=== PATIENT | male | born 1950 | race Caucasian/White ===

== ENCOUNTER 2016-05-07 09:42 | Outpatient (CLI) | payer MEDICARE, OTHER | END 2016-05-07 09:43 | disposition home or self-care (01) | DX: G47.33 Obstructive sleep apnea (adult) (pediatric) (principal); G47.61 Periodic limb movement disorder | CPT/HCPCS: 99213; G0463 ==

== ENCOUNTER 2016-06-16 09:58 | Emergency (ER) | payer MEDICARE, OTHER ==
[2016-06-16] MEDS ORDERED: IPRATROPIUM/ALBUTEROL 3 ML NEB INH STA (11:45)
[2016-06-16] MEDS ORDERED: DEXAMETHASONE 10 MG/ML VIAL PO STA (11:45)
[2016-06-16] MEDS ORDERED: CHERRY SYRUP 10 ML UDC PO ONE (11:54)
[2016-06-16] MEDS ORDERED: DEXAMETHASONE 10 MG/ML VIAL ONE (11:54)
[2016-06-16] MEDS ORDERED: IPRATROPIUM/ALBUTEROL 3 ML NEB INH ONE (11:58)
== END 2016-06-16 12:40 | disposition home or self-care (01) ==
DX: J45.21 Mild intermittent asthma with (acute) exacerbation (principal); H66.003 Acute suppurative otitis media without spontaneous rupture of ear drum, bilateral; R03.0 Elevated blood-pressure reading, without diagnosis of hypertension
CPT/HCPCS: 71020; 94640; 99283; 99284; A9270; J7620

== ENCOUNTER 2016-06-24 10:33 | Outpatient (CLI) | payer MEDICARE, OTHER | END 2016-06-24 10:34 | disposition home or self-care (01) | DX: G47.33 Obstructive sleep apnea (adult) (pediatric) (principal) | CPT/HCPCS: 99213; G0463 ==

== ENCOUNTER 2016-09-30 09:53 | Outpatient (CLI) | payer MEDICARE, OTHER | END 2016-09-30 09:54 | disposition home or self-care (01) | LOC: SC 09:53 | PROVIDERS: ATTEND Internal Medicine Pulmonary Disease | DX: G47.33 Obstructive sleep apnea (adult) (pediatric) (principal) | CPT/HCPCS: 99213; G0463; 99212 ==

== ENCOUNTER 2017-12-07 00:58 | Outpatient (CLI) | payer MEDICARE, OTHER | END 2017-12-07 00:59 | disposition critical access hospital (66) | LOC: EMS 00:58 | PROVIDERS: ATTEND Surgery | DX: R53.1 Weakness (principal); R29.810 Facial weakness | CPT/HCPCS: A0425; A0429 ==

== ENCOUNTER 2017-12-07 01:07 | Observation (INO) | payer MEDICARE, OTHER ==
--- NOTE | 2017-12-07 01:16 | ED Physician Documentation ---
PD HPI FOCAL NEURO - Stated complaint Stated Complaint: LEFT SIDE SPASM, CONFUSION, IREGULAR HR - Chief complaint Chief Complaint: Neuro - History obtained from History obtained from: Patient, EMS - History of Present Illness Timing - onset: Enter time (00:25 AM) Severity of deficit: Moderate Weakness: Arm, Hand, Leg, Foot, Left Numbness: Arm, Hand, Leg, Foot, Left Associated symptoms: No: Headache, Nausea / vomiting, Seizure, Chest pain Contributing factors: negative: Anticoagulated, Vascular dz, Atrial fibrillation , Prosthetic heart valve Baseline status: positive: A&OX3, ambulatory, indep Similar symptoms before: Has not had sx before Recently seen: Not recently seen - Additional information Additional information: 67-year-old male went to bed at 10:30 PM last evening and was at his baseline and when he awoke this morning at 12:25 AM the patient felt confused, had left- sided clumsiness, weakness and sensory changes and was having difficulty with his speech. The patient was transported by EMS and arrives somewhat improved but reports ongoing numbness and an abnormal sensation in his left side. The patient reports increased ability to express himself with only mild slurring now. The patient denies headache, neck pain, vision changes. No history of prior. Review of Systems Constitutional: denies: Fever, Chills Eyes: denies: Discharge Ears: denies: Ear pain Nose: denies: Congestion Throat: denies: Oral lesions / sores Cardiac: denies: Chest pain / pressure Respiratory: denies: Dyspnea GI: denies: Abdominal Pain : denies: Dysuria Skin: denies: Rash Musculoskeletal: denies: Neck pain Neurologic: reports: Focal weakness, Numbness, Difficulty speaking. denies: Syncope, Altered mental status Psychiatric: denies: Depressed Immunocompromised: denies: Chemotherapy PD PAST MEDICAL HISTORY - Past Medical History Cardiovascular: None Respiratory: None Neuro: None : Benign prostate hypertrophy, Frequency HEENT: Chronic hearing loss Musculoskeletal: Osteoarthritis, Fibromyalgia, Chronic back pain - Past Surgical History Past Surgical History: Yes Ortho: ACL reconstruction, Spine surgery - Present Medications Home Medications: Ambulatory Orders Medication Instructions Recorded Confirmed Albuterol Sulf [Ventolin Hfa 1 - 2 puffs INH Q4HR PRN #1 inhaler 06/16/16 Inhaler] Benzonatate [Tessalon] 100 - 200 mg PO TID PRN #20 capsule 06/16/16 Ibuprofen 800 mg QPM 06/16/16 06/16/16 Zolpidem [Ambien] 10 mg QPM 06/16/16 06/16/16 - Allergies Allergies/Adverse Reactions: Allergies Allergy/AdvReac Type Severity Reaction Status Date / Time narcotics Allergy Respiratory Uncoded 12/07/17 01:14 - Social History Does the pt smoke?: No Smoking Status: Never smoker Does the pt drink ETOH?: Yes Does the pt have substance abuse?: No PD ED PE NORMAL - General General: Alert and oriented X 3 - HEENT HEENT: Atraumatic, PERRL, EOMI, Ears normal, Moist mucous membranes - Neck Neck: Supple, no meningeal sign - Cardiac Cardiac: RRR, Strong equal pulses - Respiratory Respiratory: No respiratory distress, Clear bilaterally - Abdomen Abdomen: Soft, Non tender - Derm Derm: Normal color - Extremities Extremities: No deformity - Neuro Neuro: Alert and oriented X 3, energy auditor 2-12 intact, Other (The patient's face is symmetric, tongue is midline, sensation in the face is normal. 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 No pronator drift in the upper extremities. No pronator drift in the lower extremities. The patient reports decreased sensation in the left upper and lower extremity. The patient's speech is very slightly slurred but he is able to comprehend and articulate himself.). No: No motor deficit, No sensory deficit, Normal speech - Psych Psych: Normal mood NIHSS - Level of Consciousness Level of consciousness: (0) Alert, Keenly responsive LOC Questions: (0) Answers both Q's correct LOC Commands: (0) Performs both correctly - Gaze Best Gaze: (0) Normal - Visual Visual: (0) No loss - Facial Palsy Facial Palsy: (0) Normal, symmetrical movement - Motor Arms (both separate) Motor Arm (right): (0) No drift Motor Arm (left): (0) No drift - Motor Legs (both separate) Motor Leg (right): (0) No drift Motor Leg (left): (0) No drift - Sensory Sensory: (1) Kizt-xd-modqzjuk loss - Best Language Best Language: (0) No aphasia - Dysarthria Dysarthria: (1) Cdul-rq-pimnwaqg dysarthria - Extinction and Inattention (formally neg Extinction and inattention: (0) No abnormality Results - Vitals Vitals: Vital Signs - 24 hr 12/07/17 12/07/17 01:09 01:42 Temperature 36.4 C L Heart Rate 66 59 L Respiratory 16 15 Rate Blood Pressure 145/84 H 120/65 O2 Saturation 97 98 Oxygen O2 Source Room air - EKG (time done) 01:45 Rate: Rate (enter#) Rhythm: NSR Intervals: Prolonged VA, 1st degree AVB, Wide QRS Ischemia: Normal ST segments Other comments: Other comments (Sinus rhythm with first-degree AV block and nonspecific intraventricular conduction delay) - Labs Labs: Laboratory Tests 12/07/17 12/07/17 12/07/17 01:15 01:50 01:50 WBC 7.4 RBC 4.59 L Hgb 14.4 Hct 41.2 L MCV 89.8 MCH 31.3 H MCHC 34.9 RDW 13.1 Plt Count 218 MPV 8.5 Neut # (Auto) 3.7 Lymph # (Auto) 2.4 [place] # (Auto) 0.8 Eos # (Auto) 0.4 Baso # (Auto) 0.1 Absolute Nucleated RBC 0.01 Nucleated RBC % 0.1 PT 11.2 INR 1.0 APTT 23.2 L Sodium 138 Potassium 3.5 Chloride 105 Carbon Dioxide 24 Anion Gap 9.0 BUN 17 Creatinine 0.9 Estimated GFR (MDRD) 84 L Glucose 103 H Calcium 9.0 Total Bilirubin 0.3 AST 95 H ALT 172 H Alkaline Phosphatase 74 Total Creatine Kinase 233 Troponin I Total Protein 7.0 Albumin 3.9 Globulin 3.1 Albumin/Globulin Ratio 1.3 Lipase 31 Urine Opiates Screen Ur Oxycodone Screen Urine Methadone Screen Ur Propoxyphene Screen Ur Barbiturates Screen Ur Tricyclics Screen Ur Phencyclidine Scrn Ur Amphetamine Screen U Methamphetamines Scrn U Benzodiazepines Scrn Urine Cocaine Screen U Cannabinoids Screen Ethyl Alcohol < 5.0 12/07/17 12/07/17 01:50 01:50 WBC RBC Hgb Hct MCV MCH MCHC RDW Plt Count MPV Neut # (Auto) Lymph # (Auto) [place] # (Auto) Eos # (Auto) Baso # (Auto) Absolute Nucleated RBC Nucleated RBC % PT INR APTT Sodium Potassium Chloride Carbon Dioxide Anion Gap BUN Creatinine Estimated GFR (MDRD) Glucose Calcium Total Bilirubin AST ALT Alkaline Phosphatase Total Creatine Kinase Troponin I < 0.04 Total Protein Albumin Globulin Albumin/Globulin Ratio Lipase Urine Opiates Screen NEGATIVE Ur Oxycodone Screen NEGATIVE Urine Methadone Screen NEGATIVE Ur Propoxyphene Screen NEGATIVE Ur Barbiturates Screen NEGATIVE Ur Tricyclics Screen NEGATIVE Ur Phencyclidine Scrn NEGATIVE Ur Amphetamine Screen NEGATIVE U Methamphetamines Scrn NEGATIVE U Benzodiazepines Scrn NEGATIVE Urine Cocaine Screen NEGATIVE U Cannabinoids Screen NEGATIVE Ethyl Alcohol - Rads (name of study) CXR Radiology: Final report received (IMPRESSION: Hypoventilatory single view chest with cardiomegaly but without definite acute process. ) CTA Head/neck Radiology: Final report received (CT Head: No acute intracranial abnormality CTA Head: No large vessel occlusion, stenosis or aneurysm) PD MEDICAL DECISION MAKING - ED course ED course: 01:10 AM After a quick assessment of an acute stroke treatment and a stroke team was activated. 01:50 AM The patient's speech is close to his baseline per the significant other. The patient's motor weakness is improved and currently he is only experiencing sensory symptoms. The patient is able to ambulate without any difficulty. Require admission to the hospital for ongoing workup of his TIA. Reevaluation the patient was mostly at his baseline. Currently there is no findings that would necessitate transfer. The patient is not a candidate for TPA. The case was discussed with the hospitalist Dr. Mccann who accepts the patient onto her service. The findings and plan were discussed with the patient who understands and agrees - Consults Consults: Consulted (name) (Dr. Leal ), Discussed case with (01:55 AM The case was discussed with the on-call stroke neurologist from [facility]. The patient's past medical history and current presentation were discussed. Since, the patient's symptoms have improved and he no longer has any significant motor weakness in his left upper arm or leg and his speech is mostly at baseline. She , currently does not recommend any treatment with TPA. If the patient's symptoms change she request a reconsultation but currently no treatment is recommended), Other - Sepsis Event Vital Signs: Vital Signs - 24 hr 12/07/17 12/07/17 01:09 01:42 Temperature 36.4 C L Heart Rate 66 59 L Respiratory 16 15 Rate Blood Pressure 145/84 H 120/65 O2 Saturation 97 98 Oxygen O2 Source Room air Departure - Departure Disposition: ED Place in Observation Clinical Impression: TIA (transient ischemic attack)
[2017-12-07] MEDS ORDERED: IOPAMIDOL-300 100 ML VIAL ONE (01:17)
[2017-12-07 01:27] LABS: BASOPHILS # (AUTO) 0.1 10^3/uL (0.0-0.1); BASOPHILS % (AUTO) 0.8 %; EOSINOPHILS # (AUTO) 0.4 10^3/uL (0.0-0.7); EOSINOPHILS % (AUTO) 5.7 %; HGB - HEMOGLOBIN 14.4 g/dL (14.0-18.0); LYMPHOCYTES # (AUTO) 2.4 10^3/uL (1.5-3.5); LYMPHOCYTES % (AUTO) 33.1 %; MEAN CORPUSCULAR HEMOGLOBIN 31.3 pg (27.0-31.0); MEAN CORPUSCULAR HGB CONC 34.9 g/dL (32.0-36.0); MEAN CORPUSCULAR VOLUME 89.8 fL (80.0-94.0); MEAN PLATELET VOLUME 8.5 fL (7.4-11.4); MONOCYTES # (AUTO) 0.8 10^3/uL (0.0-1.0); MONOCYTES % (AUTO) 10.2 %; NEUTROPHILS # (AUTO) 3.7 10^3/uL (1.5-6.6); NEUTROPHILS % (AUTO) 50.2 %; PLT - PLATELET COUNT 218 10^3/uL (130-450); RED BLOOD COUNT 4.59 10^6/uL (4.70-6.10); RED CELL DISTRIBUTION WIDTH 13.1 % (12.0-15.0); WHITE BLOOD COUNT 7.4 x10^3/uL (4.8-10.8)
[2017-12-07] MEDS ORDERED: IOPAMIDOL-300 100 ML VIAL IVP ONE ×2 (01:38→03:11)
--- NOTE | 2017-12-07 01:55 | XRAY Report ---
Reason: chest pain Procedure Date: 12/07/2017 Accession Number: [id number] / [id number] Procedure: XR - Chest 1 View X-Ray CPT Code: 94244 FULL RESULT: EXAM: CHEST RADIOGRAPHY EXAM DATE: 12/07/2017 01:44 AM. CLINICAL HISTORY: Code stroke chest x-ray COMPARISON: XR CHEST PA AND LAT 07/18/2007 HEAD ANGIO 12/07/2017 1:24 AM. TECHNIQUE: 1 view. FINDINGS: Lungs/Pleura: Low volumes. No definite pneumonia or edema. No gross pneumothorax or large effusion. Mediastinum: Mild cardiomegaly. No mediastinal shift. Other: None. IMPRESSION: Hypoventilatory single view chest with cardiomegaly but without definite acute process. RADIA
[2017-12-07 01:57] LABS: MUDS CUTOFF CONCENTRATIONS CUTOFF CONC BELOW:
[2017-12-07] MEDS ORDERED: ASPIRIN CHEW 81 MG TABLET PO STA (02:00)
[2017-12-07 02:04] LABS: PT - PROTHROMBIN TIME 11.2 secs (9.9-12.6)
--- NOTE | 2017-12-07 02:07 | CT Report ---
Reason: L sided weakness Procedure Date: 12/07/2017 Accession Number: [id number] / [id number] Procedure: CT - Head Angio CPT Code: FULL RESULT: EXAM: CT ANGIOGRAM HEAD. CT SCAN OF THE HEAD WITHOUT AND WITH CONTRAST. EXAM DATE: 12/07/2017 01:41 AM CLINICAL HISTORY: Left sided weakness COMPARISON: None. TECHNIQUE: - CT Scan Head: Using a multidetector scanner, axial images were acquired from the foramen magnum to the skull vertex prior to and following contrast administration. - CT Angiogram: Using a multidetector scanner, high-resolution axial images were acquired from the skull base through vertex following rapid infusion of intravenous contrast. Reformats: Multiplanar MIP reformats were reconstructed. Nascet criteria used for stenosis measurement. IV Contrast: ISOVUE 300 80mL. In accordance with CT protocol optimization, one or more of the following dose reduction techniques were utilized for this exam: automated exposure control, adjustment of mA and/or KV based on patient size, or use of iterative reconstructive technique. FINDINGS: NON-CONTRAST HEAD: Parenchyma: No intraparenchymal hemorrhage. No evidence of mass, midline shift, or CT findings of infarction. Alvarado-white differentiation is distinct. Well-circumscribed hypodensity in the right periatrial white matter measures 9 mm. Extraaxial Spaces: Normal for age. No subdural or epidural collections identified. Ventricles: Normal in size and position. Sinuses and orbits: Imaged paranasal sinuses, orbits, and mastoids show no significant abnormality. Bones: No evidence of fracture or calvarial defect. Other: None. POST-CONTRAST HEAD: No abnormal enhancement. CT ANGIOGRAM HEAD: Posterior circulation: Dominant left vertebral artery. Basilar artery and both posterior cerebral arteries are patent. There is a patent right posterior communicating artery. Left is not seen. Anterior circulation: Both internal carotid arteries, anterior and middle cerebral arteries are patent. An anterior communicating artery is not confidently identified. Right MCA and its major branches are patent without evidence of occlusive thrombus. DURAL VENOUS SINUSES AND MAJOR CENTRAL VEINS: Patent. IMPRESSION: CT Head: No acute intracranial abnormality. Specifically, no evidence of acute infarct, hemorrhage, or mass lesion. Well-circumscribed hypodensity in the right periatrial white matter may represent an old lacunar infarct. No abnormal enhancement. ASPECTS 10 bilaterally. CTA Head: No large vessel occlusion, stenosis or aneurysm. Specifically, right MCA and its major branches appear patent. RADIA The above findings were discussed with Kip Franco by Dr. Javier John at 02:02 hrs on 12/07/17.
[2017-12-07 02:09] LABS: ALBUMIN 3.9 g/dL (3.2-5.5); ALBUMIN/GLOBULIN RATIO 1.3 (1.0-2.2); ALKALINE PHOSPHATASE 74 IU/L (42-121); ALT ALANINE AMINOTRANSFERASE 172 IU/L (10-60); AST ASPARTATE AMINOTRANSFERASE 95 IU/L (10-42); BILIRUBIN,TOTAL 0.3 mg/dL (0.2-1.0); BUN - BLOOD UREA NITROGEN 17 mg/dL (6-20); CARBON DIOXIDE - CO2 24 mmol/L (21-32); CHLORIDE 105 mmol/L (101-111); CK- CREATINE KINASE 233 IU/L (22-269); CREATININE 0.9 mg/dL (0.6-1.2); GFR - MDRD 84 (>89); GLUCOSE 103 mg/dL (70-100); LIPASE 31 U/L (22-51); SODIUM 138 mmol/L (135-145)
[2017-12-07 02:11] LABS: AMPHETAMINE SCREEN,URINE NEGATIVE (NEGATIVE); BENZODIAZEPINES SCREEN, URINE NEGATIVE (NEGATIVE); COCAINE SCREEN URINE NEGATIVE (NEGATIVE); METHADONE SCREEN, URINE NEGATIVE (NEGATIVE); METHAMPHETAMINES SCREEN, URINE NEGATIVE (NEGATIVE); OPIATE SCREEN, URINE NEGATIVE (NEGATIVE); OXYCODONE SCREEN, URINE NEGATIVE (NEGATIVE); PROPOXYPHENE SCREEN, URINE NEGATIVE (NEGATIVE); TRICYCLIC ANTIDEPRESSANT,URINE NEGATIVE (NEGATIVE)
--- NOTE | 2017-12-07 02:16 | CT Report ---
Reason: L sided weakness Procedure Date: 12/07/2017 Accession Number: [id number] / [id number] Procedure: CT - Neck Angio CPT Code: FULL RESULT: EXAM: CT ANGIOGRAM NECK EXAM DATE: 12/07/2017 01:41 AM. CLINICAL HISTORY: Left sided weakness COMPARISON: None. TECHNIQUE: Routine axial helical imaging was performed from the skull base through the aortic arch. Reconstructions: Routine multiplanar 3D MIP reconstructions. IV Contrast: ISOVUE 300 80mL. Evaluation of arterial stenosis is based on a NASCET method of measurement. In accordance with CT protocol optimization, one or more of the following dose reduction techniques were utilized for this exam: automated exposure control, adjustment of mA and/or KV based on patient size, or use of iterative reconstructive technique. FINDINGS: Line aortic arch, origins of the great vessels, brachiocephalic and both subclavian arteries are patent and unremarkable. Right Carotid: Right common carotid is patent to the bifurcation. There is mild atherosclerotic change involving the proximal right ICA without stenosis. The right occipital artery is seen arising from the proximal ICA roughly 2 cm from its origin. Left Carotid: The common carotid, internal carotid, and external carotid arteries are widely patent. No dissection, significant atherosclerotic plaque, or calcification identified. Vertebrals: Vertebral arteries are patent throughout the neck. Left is larger than the right. Intracranial Circulation: Normal. No stenoses or aneurysms of the visualized vessels. Other: The bones, soft tissues, and lung apices are within normal limits. IMPRESSION: Left carotid is unremarkable. Mild noncalcified plaquing of the proximal left ICA without stenosis. The right occipital artery, normally a branch of the external carotid artery, arises from the right ICA roughly 2 cm from its origin. This is an extremely rare normal variant. Patent vertebral arteries throughout the neck. RADIA The above findings were discussed with Kip Franco by Dr. Javier John at 02:10 hrs on 12/07/17.
[2017-12-07] MEDS ORDERED: ONDANSETRON 4 MG/2 ML VIAL IVP PRN (03:10)
[2017-12-07] MEDS ORDERED: ZOLPIDEM 5 MG TABLET PO PRN (03:10)
[2017-12-07] MEDS ORDERED: IBUPROFEN 600 MG TABLET PO PRN (03:10)
[2017-12-07] MEDS ORDERED: POTASSIUM CHLORIDE 20 MEQ TABLET PO ONE (03:19)
[2017-12-07] MEDS: ASPIRIN EC 325 MG TABLET PO SCH ×2 (04:18→08:41)
[2017-12-07] MEDS: SODIUM CHLORIDE FLUSH 0.9% 10 ML SYRINGE IVP PRN ×2 (04:19→06:51)
[2017-12-07 04:37] LABS: BILIRUBIN,URINE NEGATIVE (NEGATIVE); GLUCOSE, URINE (UA) NEGATIVE (NEGATIVE); KETONES,URINE (UA) NEGATIVE (NEGATIVE); LEUKOCYTE ESTERASE, URINE NEGATIVE (NEGATIVE); NITRITE,URINE NEGATIVE (NEGATIVE); OCCULT BLOOD,URINE NEGATIVE (NEGATIVE); PROTEIN,URINE NEGATIVE (NEGATIVE); UROBILINOGEN,URINE 0.2 (NORMAL) E.U./dL (NORMAL)
[2017-12-07 04:46] LABS: BACTERIA,URINE None Seen /HPF (None Seen); CLARITY,URINE CLEAR (CLEAR); RBC,URINE None Seen /HPF (0-5); SQUAMOUS EPITHELIAL CELL,UR NONE SEEN (<= Few)
[2017-12-07] MEDS ORDERED: LORazepam 2 MG/ML VIAL IVP PRN (06:15)
[2017-12-07] MEDS ORDERED: levETIRAcetam INJ 1,000 MG in SODIUM CHLORIDE 0.9% 100ML 100 ML IV SCH (06:15)
[2017-12-07 07:03] LABS: CHOL/HDL RATIO 3.5 (<5.0); CHOLESTEROL 149 mg/dL; HDL CHOLESTEROL 42 mg/dL; LDL CHOLESTEROL,CALCULATED 77 mg/dL; LDL/HDL RATIO 1.8 (<3.6); VLDL CHOLESTEROL 30 mg/dL
[2017-12-07 07:39] LABS: THYROID STIMULATING HORMONE 2.46 uIU/mL (0.34-5.60)
[2017-12-07 07:44] LABS: PROLACTIN 26.87 ng/mL
[2017-12-07 08:06] LABS: HB2 TOTAL 15.1 g/dL; HEMOGLOBIN A1C 0.57 g/dL; HEMOGLOBIN A1C % 5.6 % (4.6-6.2)
[2017-12-07] MEDS: POLYETHYLENE GLYCOL 3350 17 GM PACKET PO SCH (08:40)
[2017-12-07] MEDS: ENOXAPARIN 40 MG/0.4 ML SYRINGE SUBQ SCH (08:46)
[2017-12-07] MEDS: SODIUM CHLORIDE FLUSH 0.9% 10 ML SYRINGE IVP SCH ×2 (08:48→08:50)
--- NOTE | 2017-12-07 10:11 | HISTORY & PHYSICAL EXAMINATION ---
DATE OF SERVICE: 12/07/2017 Physician: Laurita Mccann MD CHIEF COMPLAINT: Left-sided weakness and numbness. HISTORY OF PRESENT ILLNESS: Patient is a 67-year-old white male with past medical history of dyslipidemia, arthritis and fibromyalgia who presented to [facility]; was brought in by ambulance with the above chief complaint. Patient and his were good historians. They reported that the patient was in his usual state of health, although recently he had been under increased stress due to the 's sister having a stroke, needing to move into a facility , and patient and his are managing selling this family member's house. As a result, the patient had increased physical activities recently, cleaning his [id number]'s home, carrying things, and the process of selling the home had also been stressful. Other than that, there was no recent change in the patient 's circumstances. 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 Currently he does not take any medication for this problem except ibuprofen. He does see an outpatient provider for this problem and he is in the process of discussing the possibly of starting Humira. His arthritis pains usually are symmetric involving mostly the large joints, the neck, and the back. Regarding the circumstances leading to hospital transfer, patient reports that he went to bed around 11:30 p.m. on 12/06/2017. Subsequently an hour later after midnight on 12/07/2017, he woke up, and he experienced profound left- sided weakness and numbness, felt difficulty speaking. The way he describes it , he woke up, and he noticed his fell asleep, the TV was still on; he reached for the remote and tried to operate it. Subsequently, he noted that his left arm and hand did not work, it was tense, almost contracted, and numb. The left lower extremity similarly was weak and numb. His face was numb as well , and he felt an unusual sensation "all over". He denied headache. He never experienced similar symptoms in the past. Upon presentation to the ER , he was hemodynamically stable and afebrile. Laboratories were unrevealing. Brain imaging was unrevealing as well, including CT angiography of head and neck , which showed no hemodynamically significant stenosis or abnormality. Chest x- ray showed no acute abnormality. EKG was unremarkable as well. Only laboratory abnormality was slightly abnormal liver function tests, including ALT of 172, an AST 95. PAST MEDICAL HISTORY 1. Dyslipidemia. 2. Rheumatoid arthritis/osteoarthritis/Kahlil syndrome was diagnosed in 2006, patient reports he developed symptoms after salmonella infection; back then he was hospitalized and was treated on multiple medications. 3. Fibromyalgia. 4. Obstructive sleep apnea. OUTPATIENT MEDICATIONS Included: 1. Lipitor. 2. Ambien. 3. Ibuprofen. SOCIAL HISTORY: Patient does not smoke. He drinks alcohol socially. FAMILY HISTORY: Positive for longevity. Mother is still alive at age 91. Father at age 91, had cerebrovascular accident and coronary artery disease at older age. REVIEW OF SYSTEMS: Please see pertinent positives listed above at history of present illness. Patient did not report additional complaints on the 12-point review. PHYSICAL EXAMINATION VITAL SIGNS: Temperature 36.4, heart rate between 50 and 66, blood pressure 145 /84, respiration rate 16, oxygen saturation 98% on room air. GENERAL: The patient is a well-developed male who is not in acute distress. NEUROLOGIC: Symmetric face, intact speech, and normal cognition. Subjective numbness of the left upper extremity; however, no weakness of the upper extremity and no pronator drift. No ataxia. PSYCHIATRIC: Cooperative, pleasant to talk to. CARDIOVASCULAR: S1, S2. Regular rhythm, on the bradycardic side, without murmur, rub, or gallop. RESPIRATORY: Clear to auscultation with good air entry throughout. ABDOMEN: Soft, benign, nontender. Bowel tones present. LYMPH: No lymphedema. MUSCULOSKELETAL: No joint swelling or muscle tenderness. SKIN: Without jaundice or pallor. ASSESSMENT AND PLAN 1. Patient is a 67-year-old white male with not much chronic medical problem except for arthritis, fibromyalgia, and dyslipidemia. He presents with symptoms of left-sided weakness, difficulty speaking which lasted for about an hour and had been resolving during the ER stay. So far, no clear etiology was found. Therefore, the patient is getting admitted and completing TIA workup. Workup will include telemetry monitoring, rechecking troponin, brain MRI, urinalysis, TSH, hemoglobin A1c, lipid panel, ESR, and echocardiogram with bubble study. Only abnormality on admission is slightly abnormal liver function tests, which could be secondary to the patient being on statin, and this will need to be watched and followed. If LFTs further increase, then patient might not be a candidate for statin. Alternatively, the patient could also have a viral illness which could affect his liver function, or he could have fatty liver as well. I do not have prior laboratories to compare. In any case, the liver function test elevation is mild. Patient might need hepatitis test as an outpatient, or other viral serology panels and workup. I do not think this would play into his symptoms or presentation today. 2. FULL CODE. 3. Deep venous thrombosis prophylaxis. 4. Aspirin was given in the ER. 5. Regarding medications, for now I will continue statin and aspirin. ATTESTATION: Patient is getting admitted under observation for TIA workup. I expect less than 48-hour hospital stay. Time spent in the care of this patient was 50 minutes. TD: 12/07/2017 03:55 TADEO
--- NOTE | 2017-12-07 15:06 | PROVIDER PROGRESS NOTE ---
Hospitalist Cross-cover Note - Cross-Cover Note Cross-Cover Note: Patient had an episode where he had convulsions of the left arm and leg similar to what he had at home at around 6am. The hospitalist on during the night loaded him with keppra as this episode was believed to be a partial seizure. Patients lactic acid and prolactin were elevated after the event. The patient was fully aware of the event and had no post ictal phase nor does he have any residual effects. He has had no further events during the day. We are awaiting a MRI in the morning for further evaluation.
[2017-12-07] MEDS ORDERED: ATORVASTATIN 10 MG TABLET PO SCH (21:00)
[2017-12-08] MEDS: SODIUM CHLORIDE FLUSH 0.9% 10 ML SYRINGE IVP SCH ×3 (03:09→16:56)
[2017-12-08] MEDS: SODIUM CHLORIDE FLUSH 0.9% 10 ML SYRINGE IVP PRN ×2 (03:09→06:18)
[2017-12-08] MEDS: POLYETHYLENE GLYCOL 3350 17 GM PACKET PO SCH (08:36)
[2017-12-08] MEDS: ASPIRIN EC 325 MG TABLET PO SCH (08:42)
[2017-12-08] MEDS: ENOXAPARIN 40 MG/0.4 ML SYRINGE SUBQ SCH (08:44)
--- NOTE | 2017-12-08 14:32 | MRI Report ---
Reason: cva Procedure Date: 12/08/2017 Accession Number: [id number] / [id number] Procedure: MRI - Brain W/O CPT Code: FULL RESULT: EXAM: MRI BRAIN WITHOUT CONTRAST EXAM DATE: 12/08/2017 02:09 PM. CLINICAL HISTORY: CVA COMPARISON: CT of the head and neck 12/07/2017. TECHNIQUE: Multiplanar, multisequence T1-weighted and fluid-sensitive MR sequences of the brain were performed. Sequences optimized for routine evaluation. Other: None. IV Contrast: None. FINDINGS: The diffusion-weighted images are normal. There is no evidence of acute or subacute cerebral infarction. The corpus callosum is of normal size and configuration. The craniocervical junction is normal. There is a 3.5 x 3.5 mm T2 isointense T1 isointense mass demonstrated emanating from the left adenohypophysis with slight suprasellar extension (10, 901). The overall location and appearance would favor that of a microadenoma. Recommend correlation with pituitary function test. This can be further evaluated with MRI of the pituitary without and with contrast as deemed clinically appropriate. The images are degraded by motion. There are punctate and confluent areas of T2 hyperintensity of the subcortical, deep, and periventricular white matter of the supratentorial brain. The largest hyperintensity is of the periventricular/deep white matter of the inferior right parietal lobe measuring 13 mm (14, 701). The differential diagnosis would include a demyelinating process versus chronic small vessel ischemia or possibly a combination of both processes. Recommend clinically correlating. There is a punctate focus of susceptibility of the deep white matter of the left frontal lobe (15, 801). There is a focus of susceptibility demonstrated within the left parietal lobe subcortical white matter measuring 5 mm (17, 801). This latter area of susceptibility could represent a cavernoma versus old blood products from previous microhemorrhage. The optic nerves demonstrate symmetric signal intensity and size. There is mild mucosal thickening in the ethmoid air cells. The bilateral parotid spaces exhibit normal signal intensity. The cerebral vascular flow voids are patent. IMPRESSION: 1. The images are degraded by motion. 2. There is no evidence of acute or subacute cerebral infarction. 3. There is a 5 mm focus of susceptibility within the left parietal lobe subcortical white matter. This may reflect a cavernoma versus old blood products from previous microhemorrhage. 4. There are punctate and confluent areas of T2 hyperintensity of the subcortical, deep, and periventricular white matter of the supratentorial brain. The largest hyperintensity is of the periventricular/deep white matter of the inferior right parietal lobe measuring 13 mm (14, 701). The differential diagnosis would include a demyelinating process versus chronic small vessel ischemia or possibly a combination of both processes. 5. There is a 3.5 x 3.5 mm T2 isointense T1 isointense mass demonstrated emanating from the left adenohypophysis with slight suprasellar extension . The overall location and appearance would favor that of a microadenoma. Recommend correlation with pituitary function test.
[2017-12-08] MEDS ORDERED: levETIRAcetam INJ 1,000 MG in SODIUM CHLORIDE 0.9% 100ML 100 ML IV STA (15:59)
--- NOTE | 2017-12-08 18:13 | DISCHARGE SUMMARY ---
Discharge Summary Admit Date: 12/07/17 Discharge Date: 12/08/17 Discharging Provider: Anthony Banda MD Primary Care Provider: Jeronimo Bloom MD Code Status: Attempt Resuscitation Condition at Discharge: Good Discharge Disposition: 02 Transfer Acute Care Hosp Discharge Facility Name: [facility] Accepting Provider: Edil Swartz MD - DIAGNOSES Admission Diagnoses: 1. Transient ischemic attack 2. Hyperlipidemia 3. Osteoarthritis Discharge Diagnoses with Status of Each Condition: 1. Seizures: Guarded 2. Microadenoma: Guarded 3. Bradycardia: Stable 4. Hyperlipidemia 5. Osteoarthritis - HPI History of Present Illness: Patient is a 67-year-old gentleman with a past medical history significant for dyslipidemia, arthritis and fibromyalgia who presented to the [facility] emergency department; was brought in by ambulance with chief complaint of left-sided weakness and numbness. Patient and his were good historians. They reported that the patient was in his usual state of health, although recently he had been under increased stress due to the 's sister having had a stroke, needing to move into a facility, and the patient and his are managing selling this family members home. As a result, the patient had increased physical activities recently, cleaning his n[place]its-[place] s home, carrying things, in the process of selling the home has been very stressful. Other than that, there was no recent change in the patient's circumstances. 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 Currently he does not take any medications for this problem except ibuprofen. He does see an outpatient provider for this problem and he is in the process of discussing the possibility of starting Humira. His arthritis pains usually are symmetrical involving mostly the large joints, the neck and the back. Regarding the circumstances leading to hospital transfer, patient reports that he went to bed around 11:30 PM on 12/06/2017. Subsequently an hour later after midnight on 12/07/2017, he woke up, then he experienced profound left-sided weakness and numbness, felt difficulty speaking. The way he describes it, he woke up, and he noticed his fell asleep, the TV was still on; he reached for the remote and try to operate it. Subsequently, he noted that his left arm and hand did not work, it was tense, almost contracted, and numb. The left lower extremity similarly was weak and numb. His face was numb as well, and he felt an unusual sensation all over. He denied headache. He never experienced similar symptoms in the past. Upon presentation to the ER , he was hemodynamically stable and afebrile. Laboratories were unrevealing. Brain imaging was unrevealing as well, including CT angiogram of the head and neck, which showed no hemodynamically significant stenosis or abnormality. Chest x-ray showed no acute abnormality. EKG was unremarkable as well. Only laboratory abnormality was slightly abnormal liver function tests, including ALT of 172 and AST of 95 which were thought to possibly be due to the fact that he was on a statin. Patient had an episode where he had convulsions of the left arm and leg similar to what he had at home at around 6am. The hospitalist on during the night loaded him with keppra as this episode was believed to be a partial seizure. Patients lactic acid and prolactin were elevated after the event. The patient was fully aware of the event and had no post ictal phase nor does he have any residual effects. He has had no further events during the day. We are awaiting a MRI in the morning for further evaluation. - HOSPITAL COURSE Hospital Course: The patient was placed in observation and monitored on telemetry with neuro checks. The patient did not have any abnormal findings on telemetry aside from being persistently bradycardic. The patient's EKG did show evidence of first- degree block but no other significant abnormalities. The patient did undergo an echocardiogram while he was hospitalized which showed a normal ejection fraction of 50-55% with no regional wall motion abnormalities and no evidence of a mass or thrombus. During the observation stay the patient had multiple episodes of what appeared to be partial seizures of the left upper and lower extremity. The patient would have weakness where he states he could not lift his left arm or leg. He states that they were both very tense and appeared to be spasmed. The episode lasted anywhere between 45 seconds to 2 minutes. Initially after receiving Keppra the patient did not have any episodes for nearly 24 hours. The patient received no further doses of Keppra and then began having more and more frequent episodes. He had about 4 episodes on the day of 12/08/2017. During these episodes the patient was fully awake and aware. He had no residual deficits after each episode. The patient's neurologic exam after the episodes was completely normal. The patient finally did undergo an MRI of the brain on 12/08/2017 which showed no evidence of acute or subacute cerebral infarction. There was however a 5 mm focus of susceptibility within the left parietal lobe subcortical white matter. This may reflect a cavernoma versus old blood products from previous microhemorrhage. There was also a punctate and confluent areas of T2 hyperintensity of the subcortical, deep and periventricular white matter of the supratentorial brain. The largest hyperintensity is of the periventricular/deep white matter of the inferior right parietal lobe measuring 13 mm. The differential diagnosis would include demyelinating process versus chronic small vessel ischemia or possibly a combination of both processes. There was also finding of a 3.5 x 3.5 mm T2 isointense T1 isointense mass demonstrated emanating from the left adenohypophysis with slight suprasellar extension. Overall location and appearance would favor that of a microadenoma. Given these findings and the persistent seizure-like activities we consulted neurology from [facility]. I spoke with Dr. Loredo over the phone who felt that although the patient's MRI changes were chronic they did make him more prone to seizures. He was concerned that the episodes that the patient was having were in fact seizures. Since we do not have EEG available at our facility Dr. Loredo asked that the patient be transferred to [facility] a facility that does have a EEG available. He also asked that the patient be loaded with 1 g of Keppra IV and then be placed on Keppra 1000 mg orally twice daily. He suggested that another MRI be done with contrast however our MRI was done for the date and therefore the patient will need to get the MRI at [facility]. I spoke with hospitalist on-call and [facility] Dr. Edil Swartz who was kind enough to accept the patient in transfer. The patient was transferred to [facility] after being loaded with Keppra IV and was in stable condition at the time of transfer. - ALLERGIES Allergies/Adverse Reactions: Allergies Allergy/AdvReac Type Severity Reaction Status Date / Time narcotics Allergy Respiratory Uncoded 12/07/17 01:14 - MEDICATIONS Home Medications: Ambulatory Orders Medication Instructions Recorded Confirmed Ibuprofen 400 mg QPM 06/16/16 12/07/17 Zolpidem [Ambien] 5 mg PO QPM 06/16/16 12/07/17 Atorvastatin Calcium 20 mg PO QPM 12/07/17 12/07/17 Ibuprofen [Advil] 400 mg PO TID PRN 12/07/17 12/07/17 - PHYSICAL EXAM AT DISCHARGE General Appearance: positive: No acute distress, Alert, Anxious Eyes Bilateral: positive: Normal inspection, PERRL, EOMI, No lid inflammation, Conjunctivae nml, No scleral icterus ENT: positive: ENT inspection nml, Pharynx nml, No signs of dehydration. negative: Purulent nasal drainage, Pharyngeal erythema, Oral lesions Neck: positive: Nml inspection, Thyroid nml, No JVD, Trachea midline. negative : Lymphadenopathy (R), Lymphadenopathy (L), Stiff neck, Carotid bruit, Tracheal deviation Respiratory: positive: Chest non-tender, No respiratory distress, Breath sounds nml. negative: Wheezes, Rales, Rhonchi Cardiovascular: positive: No murmur, No gallop, Bradycardia Peripheral Pulses: positive: 2+ Abdomen: positive: Non-tender, No organomegaly, Nml bowel sounds, No distention. negative: Guarding, Rebound, Hepatomegaly Back: positive: Nml inspection. negative: CVA tenderness (R), CVA tenderness (L ) Skin: positive: Color nml, No rash, Warm. negative: Diaphoresis, Pallor, Skin rash Extremities: positive: Non-tender, Full ROM, Nml appearance, No pedal edema Neurologic/Psychiatric: positive: Oriented x3, CN's nml (2-12), Motor nml, Sensation nml, Mood/affect nml - LABS Result Diagrams: 12/07/17 01:15 12/07/17 01:50 Other Lab Results: Laboratory Results WBC 7.4 x10^3/uL (4.8-10.8) 12/07/17 01:15 RBC 4.59 10^6/uL (4.70-6.10) L 12/07/17 01:15 Hgb 14.4 g/dL (14.0-18.0) 12/07/17 01:15 Hct 41.2 % (42.0-52.0) L 12/07/17 01:15 MCV 89.8 fL (80.0-94.0) 12/07/17 01:15 MCH 31.3 pg (27.0-31.0) H 12/07/17 01:15 MCHC 34.9 g/dL (32.0-36.0) 12/07/17 01:15 RDW 13.1 % (12.0-15.0) 12/07/17 01:15 Plt Count 218 10^3/uL (130-450) 12/07/17 01:15 MPV 8.5 fL (7.4-11.4) 12/07/17 01:15 Neut # (Auto) 3.7 10^3/uL (1.5-6.6) 12/07/17 01:15 Lymph # (Auto) 2.4 10^3/uL (1.5-3.5) 12/07/17 01:15 Saunders # (Auto) 0.8 10^3/uL (0.0-1.0) 12/07/17 01:15 Eos # (Auto) 0.4 10^3/uL (0.0-0.7) 12/07/17 01:15 Baso # (Auto) 0.1 10^3/uL (0.0-0.1) 12/07/17 01:15 Absolute Nucleated RBC 0.01 x10^3/uL 12/07/17 01:15 Nucleated RBC % 0.1 /100WBC 12/07/17 01:15 ESR 11 mm/Hr (0-20) 12/07/17 06:39 PT 11.2 secs (9.9-12.6) 12/07/17 01:50 INR 1.0 (0.8-1.2) 12/07/17 01:50 APTT 23.2 secs (24.9-33.3) L 12/07/17 01:50 Sodium 138 mmol/L (135-145) 12/07/17 01:50 Potassium 3.5 mmol/L (3.5-5.0) 12/07/17 01:50 Chloride 105 mmol/L (101-111) 12/07/17 01:50 Carbon Dioxide 24 mmol/L (21-32) 12/07/17 01:50 Anion Gap 9.0 (6-13) 12/07/17 01:50 BUN 17 mg/dL (6-20) 12/07/17 01:50 Creatinine 0.9 mg/dL (0.6-1.2) 12/07/17 01:50 Estimated GFR (MDRD) 84 (>89) L 12/07/17 01:50 Glucose 103 mg/dL (70-100) H 12/07/17 01:50 Glycated Hemoglobin 5.6 % (4.6-6.2) 12/07/17 06:39 Estim Average Glucose 114 (70-100) H 12/07/17 06:39 Lactic Acid 0.9 mmol/L (0.5-2.2) 12/07/17 09:45 Calcium 9.0 mg/dL (8.5-10.3) 12/07/17 01:50 Total Bilirubin 0.3 mg/dL (0.2-1.0) 12/07/17 01:50 AST 95 IU/L (10-42) H 12/07/17 01:50 ALT 172 IU/L (10-60) H 12/07/17 01:50 Alkaline Phosphatase 74 IU/L (42-121) 12/07/17 01:50 Total Creatine Kinase 233 IU/L (22-269) 12/07/17 01:50 Troponin I < 0.04 ng/mL (<0.49) 12/07/17 08:00 Total Protein 7.0 g/dL (6.7-8.2) 12/07/17 01:50 Albumin 3.9 g/dL (3.2-5.5) 12/07/17 01:50 Globulin 3.1 g/dL (2.1-4.2) 12/07/17 01:50 Albumin/Globulin Ratio 1.3 (1.0-2.2) 12/07/17 01:50 Triglycerides 152 mg/dL (-149) H 12/07/17 06:39 Cholesterol 149 mg/dL (-199) 12/07/17 06:39 LDL Cholesterol, Calc 77 mg/dL (-129) 12/07/17 06:39 VLDL Cholesterol 30 mg/dL 12/07/17 06:39 HDL Cholesterol 42 mg/dL (60-) L 12/07/17 06:39 LDL/HDL Ratio 1.8 (<3.6) 12/07/17 06:39 Cholesterol/HDL Ratio 3.5 (<5.0) 12/07/17 06:39 Lipase 31 U/L (22-51) 12/07/17 01:50 TSH 2.46 uIU/mL (0.34-5.60) 12/07/17 06:39 Prolactin 26.87 ng/mL 12/07/17 06:39 Urine Color YELLOW 12/07/17 04:30 Urine Clarity CLEAR (CLEAR) 12/07/17 04:30 Urine pH 6.0 PH (5.0-7.5) 12/07/17 04:30 Ur Specific Warren <=1.005 (1.002-1.030) 12/07/17 04:30 Urine Protein NEGATIVE mg/dL (NEGATIVE) 12/07/17 04:30 Urine Glucose (UA) NEGATIVE mg/dL (NEGATIVE) 12/07/17 04:30 Urine Ketones NEGATIVE mg/dL (NEGATIVE) 12/07/17 04:30 Urine Occult Blood NEGATIVE (NEGATIVE) 12/07/17 04:30 Urine Nitrite NEGATIVE (NEGATIVE) 12/07/17 04:30 Urine Bilirubin NEGATIVE (NEGATIVE) 12/07/17 04:30 Urine Urobilinogen 0.2 (NORMAL) E.U./dL (NORMAL) 12/07/17 04:30 Ur Leukocyte Esterase NEGATIVE (NEGATIVE) 12/07/17 04:30 Urine RBC None Seen /HPF (0-5) 12/07/17 04:30 Urine WBC 0-3 /HPF (0-3) 12/07/17 04:30 Ur Squamous Epith Cells NONE SEEN (<= Few) 12/07/17 04:30 Urine Bacteria None Seen /HPF (None Seen) 12/07/17 04:30 Urine Culture Comments NOT INDICATED 12/07/17 04:30 Urine Opiates Screen NEGATIVE (NEGATIVE) 12/07/17 01:50 Ur Oxycodone Screen NEGATIVE (NEGATIVE) 12/07/17 01:50 Urine Methadone Screen NEGATIVE (NEGATIVE) 12/07/17 01:50 Ur Propoxyphene Screen NEGATIVE (NEGATIVE) 12/07/17 01:50 Ur Barbiturates Screen NEGATIVE (NEGATIVE) 12/07/17 01:50 Ur Tricyclics Screen NEGATIVE (NEGATIVE) 12/07/17 01:50 Ur Phencyclidine Scrn NEGATIVE (NEGATIVE) 12/07/17 01:50 Ur Amphetamine Screen NEGATIVE (NEGATIVE) 12/07/17 01:50 U Methamphetamines Scrn NEGATIVE (NEGATIVE) 12/07/17 01:50 U Benzodiazepines Scrn NEGATIVE (NEGATIVE) 12/07/17 01:50 Urine Cocaine Screen NEGATIVE (NEGATIVE) 12/07/17 01:50 U Cannabinoids Screen NEGATIVE (NEGATIVE) 12/07/17 01:50 Ethyl Alcohol < 5.0 mg/dL 12/07/17 01:50 - DIAGNOSTIC IMAGING Diagnostic Imaging Results: Final report reviewed Diagnostic Imaging Results Comments: EXAM: [id number] MRI/BRWO ([id number]) Reason: cva Procedure Date: 12/08/2017 Accession Number: [id number] / [id number] Procedure: MRI - Brain W/O CPT Code: FULL RESULT: EXAM: MRI BRAIN WITHOUT CONTRAST EXAM DATE: 12/08/2017 02:09 PM. CLINICAL HISTORY: CVA COMPARISON: CT of the head and neck 12/07/2017. TECHNIQUE: Multiplanar, multisequence T1-weighted and fluid-sensitive MR sequences of the brain were performed. Sequences optimized for routine evaluation. Other: None. IV Contrast: None. FINDINGS: The diffusion-weighted images are normal. There is no evidence of acute or subacute cerebral infarction. The corpus callosum is of normal size and configuration. The craniocervical junction is normal. There is a 3.5 x 3.5 mm T2 isointense T1 isointense mass demonstrated emanating from the left adenohypophysis with slight suprasellar extension (10, 901). The overall location and appearance would favor that of a microadenoma. Recommend correlation with pituitary function test. This can be further evaluated with MRI of the pituitary without and with contrast as deemed clinically appropriate. The images are degraded by motion. There are punctate and confluent areas of T2 hyperintensity of the subcortical, deep, and periventricular white matter of the supratentorial brain. The largest hyperintensity is of the periventricular/deep white matter of the inferior right parietal lobe measuring 13 mm (14, 701). The differential diagnosis would include a demyelinating process versus chronic small vessel ischemia or possibly a combination of both processes. Recommend clinically correlating. There is a punctate focus of susceptibility of the deep white matter of the left frontal lobe (15, 801). There is a focus of susceptibility demonstrated within the left parietal lobe subcortical white matter measuring 5 mm (17, 801). This latter area of susceptibility could represent a cavernoma versus old blood products from previous microhemorrhage. The optic nerves demonstrate symmetric signal intensity and size. There is mild mucosal thickening in the ethmoid air cells. The bilateral parotid spaces exhibit normal signal intensity. The cerebral vascular flow voids are patent. IMPRESSION: 1. The images are degraded by motion. 2. There is no evidence of acute or subacute cerebral infarction. 3. There is a 5 mm focus of susceptibility within the left parietal lobe subcortical white matter. This may reflect a cavernoma versus old blood products from previous microhemorrhage. 4. There are punctate and confluent areas of T2 hyperintensity of the subcortical, deep, and periventricular white matter of the supratentorial brain. The largest hyperintensity is of the periventricular/deep white matter of the inferior right parietal lobe measuring 13 mm (14, 701). The differential diagnosis would include a demyelinating process versus chronic small vessel ischemia or possibly a combination of both processes. 5. There is a 3.5 x 3.5 mm T2 isointense T1 isointense mass demonstrated emanating from the left adenohypophysis with slight suprasellar extension . The overall location and appearance would favor that of a microadenoma. Recommend correlation with pituitary function test. EXAM: XR/CXR1VW ([id number]) Reason: chest pain Procedure Date: 12/07/2017 Accession Number: [id number] / [id number] Procedure: XR - Chest 1 View X-Ray CPT Code: 46749 FULL RESULT: EXAM: CHEST RADIOGRAPHY EXAM DATE: 12/07/2017 01:44 AM. CLINICAL HISTORY: Code stroke chest x-ray COMPARISON: XR CHEST PA AND LAT 07/18/2007 HEAD ANGIO 12/07/2017 1:24 AM. TECHNIQUE: 1 view. FINDINGS: Lungs/Pleura: Low volumes. No definite pneumonia or edema. No gross pneumothorax or large effusion. Mediastinum: Mild cardiomegaly. No mediastinal shift. Other: None. IMPRESSION: Hypoventilatory single view chest with cardiomegaly but without definite acute process. EXAM: CT/HEADANG ([id number]) Reason: L sided weakness Procedure Date: 12/07/2017 Accession Number: [id number] / [id number] Procedure: CT - Head Angio CPT Code: FULL RESULT: EXAM: CT ANGIOGRAM HEAD. CT SCAN OF THE HEAD WITHOUT AND WITH CONTRAST. EXAM DATE: 12/07/2017 01:41 AM CLINICAL HISTORY: Left sided weakness COMPARISON: None. TECHNIQUE: - CT Scan Head: Using a multidetector scanner, axial images were acquired from the foramen magnum to the skull vertex prior to and following contrast administration. - CT Angiogram: Using a multidetector scanner, high-resolution axial images were acquired from the skull base through vertex following rapid infusion of intravenous contrast. Reformats: Multiplanar MIP reformats were reconstructed. Nascet criteria used for stenosis measurement. IV Contrast: ISOVUE 300 80mL. In accordance with CT protocol optimization, one or more of the following dose reduction techniques were utilized for this exam: automated exposure control, adjustment of mA and/or KV based on patient size, or use of iterative reconstructive technique. FINDINGS: NON-CONTRAST HEAD: Parenchyma: No intraparenchymal hemorrhage. No evidence of mass, midline shift, or CT findings of infarction. Alvarado-white differentiation is distinct. Well-circumscribed hypodensity in the right periatrial white matter measures 9 mm. Extraaxial Spaces: Normal for age. No subdural or epidural collections identified. Ventricles: Normal in size and position. Sinuses and orbits: Imaged paranasal sinuses, orbits, and mastoids show no significant abnormality. Bones: No evidence of fracture or calvarial defect. Other: None. POST-CONTRAST HEAD: No abnormal enhancement. CT ANGIOGRAM HEAD: Posterior circulation: Dominant left vertebral artery. Basilar artery and both posterior cerebral arteries are patent. There is a patent right posterior communicating artery. Left is not seen. Anterior circulation: Both internal carotid arteries, anterior and middle cerebral arteries are patent. An anterior communicating artery is not confidently identified. Right MCA and its major branches are patent without evidence of occlusive thrombus. DURAL VENOUS SINUSES AND MAJOR CENTRAL VEINS: Patent. IMPRESSION: CT Head: No acute intracranial abnormality. Specifically, no evidence of acute infarct, hemorrhage, or mass lesion. Well-circumscribed hypodensity in the right periatrial white matter may represent an old lacunar infarct. No abnormal enhancement. ASPECTS 10 bilaterally. CTA Head: No large vessel occlusion, stenosis or aneurysm. Specifically, right MCA and its major branches appear patent. EXAM: [id number] CT/NECKANG ([id number]) Reason: L sided weakness Procedure Date: 12/07/2017 Accession Number: [id number] / [id number] Procedure: CT - Neck Angio CPT Code: FULL RESULT: EXAM: CT ANGIOGRAM NECK EXAM DATE: 12/07/2017 01:41 AM. CLINICAL HISTORY: Left sided weakness COMPARISON: None. TECHNIQUE: Routine axial helical imaging was performed from the skull base through the aortic arch. Reconstructions: Routine multiplanar 3D MIP reconstructions. IV Contrast: ISOVUE 300 80mL. Evaluation of arterial stenosis is based on a NASCET method of measurement. In accordance with CT protocol optimization, one or more of the following dose reduction techniques were utilized for this exam: automated exposure control, adjustment of mA and/or KV based on patient size, or use of iterative reconstructive technique. FINDINGS: Line aortic arch, origins of the great vessels, brachiocephalic and both subclavian arteries are patent and unremarkable. Right Carotid: Right common carotid is patent to the bifurcation. There is mild atherosclerotic change involving the proximal right ICA without stenosis. The right occipital artery is seen arising from the proximal ICA roughly 2 cm from its origin. Left Carotid: The common carotid, internal carotid, and external carotid arteries are widely patent. No dissection, significant atherosclerotic plaque, or calcification identified. Vertebrals: Vertebral arteries are patent throughout the neck. Left is larger than the right. Intracranial Circulation: Normal. No stenoses or aneurysms of the visualized vessels. Other: The bones, soft tissues, and lung apices are within normal limits. IMPRESSION: Left carotid is unremarkable. Mild noncalcified plaquing of the proximal left ICA without stenosis. The right occipital artery, normally a branch of the external carotid artery, arises from the right ICA roughly 2 cm from its origin. This is an extremely rare normal variant. Patent vertebral arteries throughout the neck. Echocardiogram Impression: Left ventricular size is normal. The ventricular wall thickness is normal. Overall left ventricular systolic function is lower limits of normal with an ejection fraction of 50-55%. Diastolic function is indeterminate. No regional wall motion abnormalities are seen. The underlying rhythm is sinus bradycardia. Mild right ventricular enlargement. The right ventricular systolic function is normal. Mild increase in left ventricular atrial volume index. Severe right atrial enlargement. The aortic valve is trileaflet. There is mild aortic valve sclerosis. There is no evidence of aortic stenosis. There is no evidence of aortic regurgitation. The mitral valve is normal. No mitral stenosis noted. There is trace mitral regurgitation. The tricuspid valve appears structurally normal. No tricuspid stenosis noted. Mild tricuspid regurgitation. Normal right ventricular systolic function. The right ventricular systolic pressure at rest is 35 mmHg. The pulmonic valve is normal. No significant pulmonic regurgitation noted. There is no pulmonic stenosis noted. There is no pericardial effusion noted. The intra-atrial septum appears normal. The aortic root, ascending aorta and aortic arch diameters are normal. The aortic root and ascending aorta are dilated measuring up to 3.9 cm. There is no evidence of an aortic dissection. The pulmonary artery is normal. The inferior vena cava is normal with less than 50 % collapse which is suggestive of an estimated right arterial pressure of 8 mmHg. No mass or thrombus identified. There is no pleural effusion noted. - FOLLOW UP Follow Up: Patient is being transferred to [facility] for consultation from neurology. The patient will need an EEG, MRI with contrast and was placed on Keppra prior to discharge from our facility. The patient appears to be having seizures and needs further monitoring and consultation from neurology. The patient did have chronic findings on MRI which makes him susceptible to seizures. The patient was also running bradycardic while he was hospitalized but had no significant symptoms from bradycardia and did not have any significant heart block or indications for pacemaker. - TIME SPENT Time Spent in Discharge (Minutes): 45
--- NOTE | 2017-12-08 18:35 | Discharge Plan ---
Discharge Plan Disposition: 02 Transfer Acute Care Hosp Condition: Good No Smoking: If you smoke, Please STOP! Call for help. Follow-up with: Jeronimo Bloom MD [Primary Care Provider] -
[2017-12-08 19:03] VITALS: BP 144/71
[2017-12-08] MEDS ORDERED: levETIRAcetam 250 MG TABLET PO SCH (21:00)
== END 2017-12-08 18:58 | disposition short-term general hospital (02) ==
LOC: EDUNIT# → ED 01:07 → MS2 03:10
PROVIDERS: ADMIT Internal Medicine; ATTEND Internal Medicine
DX: R56.9 Unspecified convulsions (principal); D33.2 Benign neoplasm of brain, unspecified; R00.1 Bradycardia, unspecified; E78.5 Hyperlipidemia, unspecified; M19.90 Unspecified osteoarthritis, unspecified site; M02.30 Reiter's disease, unspecified site; R79.89 Other specified abnormal findings of blood chemistry
CPT/HCPCS: 36415; 70496; 70498; 70551; 71045; 80053; 80061; 81001; 82550; 83036; 83605; 83690; 84146; 84443; 84484; 85025; 85610; 85651; 85730; 93005; 93306; 96365; 96366; 96372; 96375; 99285; A9270; G0378; J1650; J2060; Q9967; 80306; 80320; 83721; 87086; 99284

== ENCOUNTER 2017-12-14 21:11 | Outpatient (CLI) | payer MEDICARE, OTHER | END 2017-12-14 21:12 | disposition critical access hospital (66) | LOC: EMS 21:11 | PROVIDERS: ATTEND Surgery | DX: R56.9 Unspecified convulsions (principal) ==

== ENCOUNTER 2017-12-14 21:22 | Emergency (ER) | payer MEDICARE, OTHER ==
--- NOTE | 2017-12-14 21:44 | ED Physician Documentation ---
PD HPI FOCAL NEURO - Stated complaint Stated Complaint: SZ - Chief complaint Chief Complaint: Neuro - History obtained from History obtained from: Patient, EMS - History of Present Illness Timing - onset: Other (He was seen here last week for left-sided deficits. Placed in the hospital for what was felt to be a TIA. He had several episodes in the hospital with seizure-like activity and an MRI with a microadenoma and some other nonspecific changes. He was transferred down to [place] where he had per his description an extensive workup including 3 more MRIs, lumbar puncture, and overnight EEG. He did have several episodes with the EEG on and no findings. He describes the episodes as feeling numb in the left leg and then moving quickly up the left arm was shaking in the left arm and he cannot talk during the episode but he is completely conscious and aware of everything. It lasts very briefly and then has numbness of the left side which dissipates quickly after each episode. These are happening frequently, several times a day. He was diagnosed with psychogenic nonepileptic seizures. He was discharged on sertraline and Remeron.) Review of Systems Ten Systems: 10 systems reviewed and negative Constitutional: reports: Reviewed and negative Throat: reports: Reviewed and negative Cardiac: reports: Reviewed and negative Respiratory: reports: Reviewed and negative PD PAST MEDICAL HISTORY - Past Medical History Cardiovascular: None Respiratory: CPAP use Neuro: None Endocrine/Autoimmune: None GI: None : Benign prostate hypertrophy, Frequency HEENT: Chronic hearing loss Musculoskeletal: Osteoarthritis, Fibromyalgia, Chronic back pain Derm: None - Past Surgical History Past Surgical History: Yes Ortho: ACL reconstruction, Spine surgery, Other - Present Medications Home Medications: Ambulatory Orders Medication Instructions Recorded Confirmed Ibuprofen 400 mg QPM 06/16/16 12/07/17 Zolpidem [Ambien] 5 mg PO QPM 06/16/16 12/07/17 Atorvastatin Calcium 20 mg PO QPM 12/07/17 12/07/17 Ibuprofen [Advil] 400 mg PO TID PRN 12/07/17 12/07/17 Baclofen 10 mg PO 12/14/17 Lorazepam [Ativan] 1 mg PO TID PRN #14 tablet 12/14/17 Mirtazapine 15 mg PO 12/14/17 Sertraline HCl 25 mg PO 12/14/17 Zolpidem [Ambien] 10 mg PO HS 12/14/17 12/14/17 hydrOXYzine pamoate [Hydroxyzine 25 mg PO 12/14/17 Pamoate] - Allergies Allergies/Adverse Reactions: Allergies Allergy/AdvReac Type Severity Reaction Status Date / Time narcotics Allergy Respiratory Uncoded 12/14/17 21:32 - Social History Does the pt smoke?: No Smoking Status: Never smoker Does the pt drink ETOH?: Yes Does the pt have substance abuse?: No - Immunizations Immunizations are current?: Yes - POLST Patient has POLST: No PD ED PE NORMAL - Vitals Vital signs reviewed: Yes - General General: Alert and oriented X 3, No acute distress - HEENT HEENT: PERRL, EOMI - Neck Neck: Supple, no meningeal sign, No bony TTP - Cardiac Cardiac: RRR, No murmur - Respiratory Respiratory: No respiratory distress, Clear bilaterally - Abdomen Abdomen: Normal bowel sounds, Soft, Non tender - Neuro Neuro: Alert and oriented X 3, 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 Eye Opening: Spontaneous Motor: Obeys Commands Verbal: Oriented GCS Score: 15 - Psych Psych: Normal mood, Normal affect Results - Vitals Vitals: Vital Signs - 24 hr 12/14/17 12/14/17 12/14/17 21:25 22:02 22:40 Temperature 36.5 C 36.6 C 36.5 C Heart Rate 77 67 70 Respiratory 14 18 15 Rate Blood Pressure 151/79 H 158/70 H 133/67 H O2 Saturation 97 92 94 Oxygen O2 Source Room air - EKG (time done) 2132 Rate: Rate (enter#) (70) Rhythm: NSR Oscar: Normal Intervals: Prolonged [place] QRS: Normal Ischemia: Normal ST segments, Q waves (inferior) Computer interpretation: Agree with computer PD MEDICAL DECISION MAKING - ED course ED course: 67-year-old gentleman with recent diagnosis of psychogenic nonepileptic seizures who presents with exacerbations of same. Discussed the case by phone with Dr. Juarez Mo on-call neurology who reviewed the records as well and felt like maybe a short course of benzodiazepine pending psychiatric and neurologic follow-up was appropriate. This was discussed at length with the patient and family and they felt it was unsafe for him to go home. They requested transfer to [place] and they were called back. He was accepted to [facility] by Dr. Hall at 10:55 PM and cobras were completed. - Sepsis Event Vital Signs: Vital Signs - 24 hr 12/14/17 12/14/17 12/14/17 21:25 22:02 22:40 Temperature 36.5 C 36.6 C 36.5 C Heart Rate 77 67 70 Respiratory 14 18 15 Rate Blood Pressure 151/79 H 158/70 H 133/67 H O2 Saturation 97 92 94 Oxygen O2 Source Room air Departure - Departure Disposition: Transfer Acute Care Hosp Clinical Impression: Psychogenic nonepileptic seizure Condition: Good Record reviewed to determine appropriate education?: Yes Prescriptions: Lorazepam [Ativan] 1 mg PO TID PRN #14 tablet PRN Reason: Anxiety Comments: Follow the instructions of the discharging physician at [place] including do not drink or drive. Follow-up with your primary care physician as scheduled on Friday. It would also be useful to follow-up with a psychiatrist, consider try [facility] in [place], the phone number is [phone].
[2017-12-14] MEDS ORDERED: LORazepam 0.5 MG TABLET PO STA (22:22)
[2017-12-14 22:43] VITALS: BP 133/67
== END 2017-12-14 23:50 | disposition short-term general hospital (02) ==
LOC: EDUNIT# → SUPCPDRO 21:22 → ED 21:22
DX: G40.89 Other seizures (principal); I44.0 Atrioventricular block, first degree; I44.5 Left posterior fascicular block
CPT/HCPCS: 93005; 99284; 99285; A9270

== ENCOUNTER 2017-12-15 00:57 | Outpatient (CLI) | payer MEDICARE, OTHER | END 2017-12-15 00:58 | disposition short-term general hospital (02) | LOC: EMS 00:57 | PROVIDERS: ATTEND Surgery | DX: R56.9 Unspecified convulsions (principal) ==

== ENCOUNTER 2020-08-23 10:13 | Outpatient (CLI) | payer MEDICARE, OTHER ==
[2020-08-23 11:22] LABS: RHEUMATOID FACTOR NEGATIVE (Negative)
[2020-08-23 11:31] LABS: ALBUMIN 4.3 g/dL (3.2-5.5); ALBUMIN/GLOBULIN RATIO 1.5 (1.0-2.2); ALKALINE PHOSPHATASE 57 IU/L (42-121); ALT ALANINE AMINOTRANSFERASE 22 IU/L (10-60); AST ASPARTATE AMINOTRANSFERASE 17 IU/L (10-42); BILIRUBIN,TOTAL 0.4 mg/dL (0.2-1.0); BUN - BLOOD UREA NITROGEN 15 mg/dL (6-20); CALCIUM 9.2 mg/dL (8.5-10.3); CARBON DIOXIDE - CO2 25 mmol/L (21-32); CHLORIDE 107 mmol/L (101-111); CREATININE 0.9 mg/dL (0.6-1.2); GFR - MDRD 83 (>89); GLUCOSE 105 mg/dL (70-100); POTASSIUM 3.9 mmol/L (3.5-5.0); SODIUM 141 mmol/L (135-145); TOTAL PROTEIN 7.1 g/dL (6.7-8.2)
[2020-08-23 11:47] LABS: CRP - C-REACTIVE PROTEIN < 1.0 mg/dL (0-1.0)
[2020-08-25 12:51] LABS: ANA SCREEN NEGATIVE (NEGATIVE)
== END 2020-08-23 10:14 | disposition home or self-care (01) ==
LOC: LAB 10:13
PROVIDERS: ATTEND Psychiatry & Neurology Neurology
DX: G37.9 Demyelinating disease of central nervous system, unspecified (principal); R25.9 Unspecified abnormal involuntary movements
CPT/HCPCS: 36415; 80053; 81599; 85613; 85651; 85730; 86021; 86038; 86140; 86146; 86147; 86148; 86200; 86235; 86255; 86430

== ENCOUNTER 2020-09-27 10:43 | Outpatient (CLI) | payer MEDICARE, OTHER ==
[2020-09-27 11:18] LABS: BASOPHILS # (AUTO) 0.1 10^3/uL (0.0-0.1); BASOPHILS % (AUTO) 1.1 %; EOSINOPHILS # (AUTO) 0.3 10^3/uL (0.0-0.7); EOSINOPHILS % (AUTO) 5.7 %; HCT - HEMATOCRIT 42.7 % (42.0-52.0); HGB - HEMOGLOBIN 14.1 g/dL (14.0-18.0); LYMPHOCYTES # (AUTO) 2.1 10^3/uL (1.5-3.5); LYMPHOCYTES % (AUTO) 37.6 %; MEAN CORPUSCULAR HEMOGLOBIN 29.8 pg (27.0-31.0); MEAN CORPUSCULAR VOLUME 90.3 fL (80.0-94.0); MEAN PLATELET VOLUME 9.7 fL (7.4-11.4); MONOCYTES # (AUTO) 0.5 10^3/uL (0.0-1.0); MONOCYTES % (AUTO) 8.3 %; NEUTROPHILS # (AUTO) 2.7 10^3/uL (1.5-6.6); NEUTROPHILS % (AUTO) 46.9 %; PLT - PLATELET COUNT 283 10^3/uL (130-450); RED BLOOD COUNT 4.73 10^6/uL (4.70-6.10); RED CELL DISTRIBUTION WIDTH 12.2 % (12.0-15.0); WHITE BLOOD COUNT 5.7 x10^3/uL (4.8-10.8)
[2020-09-27 11:36] LABS: ALBUMIN 4.3 g/dL (3.2-5.5); ALBUMIN/GLOBULIN RATIO 1.3 (1.0-2.2); ALKALINE PHOSPHATASE 68 IU/L (42-121); ALT ALANINE AMINOTRANSFERASE 24 IU/L (10-60); AST ASPARTATE AMINOTRANSFERASE 18 IU/L (10-42); BILIRUBIN,TOTAL 0.4 mg/dL (0.2-1.0); BUN - BLOOD UREA NITROGEN 12 mg/dL (6-20); CALCIUM 9.3 mg/dL (8.5-10.3); CARBAMAZEPINE (TEGRETOL) 5.5 ug/mL; CARBON DIOXIDE - CO2 26 mmol/L (21-32); CHLORIDE 104 mmol/L (101-111); CREATININE 0.9 mg/dL (0.6-1.2); GFR - MDRD 83 (>89); GLUCOSE 110 mg/dL (70-100); POTASSIUM 4.1 mmol/L (3.5-5.0); SODIUM 139 mmol/L (135-145); TOTAL PROTEIN 7.5 g/dL (6.7-8.2)
== END 2020-09-27 10:44 | disposition home or self-care (01) ==
LOC: LAB 10:43
PROVIDERS: ATTEND Psychiatry & Neurology Neurology
DX: G35 Multiple sclerosis (principal)
CPT/HCPCS: 36415; 80053; 80156; 85025

== ENCOUNTER 2020-12-12 08:39 | Outpatient (CLI) | payer MEDICARE, OTHER ==
[2020-12-12 09:39] LABS: T4 (THYROXINE) 5.45 ug/dL (6.09-12.23)
[2020-12-12 09:41] LABS: THYROID STIMULATING HORMONE 1.72 uIU/mL (0.34-5.60)
[2020-12-12 09:43] LABS: FREE T3 3.09 pg/mL (2.5-3.9)
[2020-12-12 09:48] LABS: PROLACTIN 9.32 ng/mL
[2020-12-12 10:09] LABS: FOLLICLE STIMULATING HORMONE 11.97 mIU/mL
[2020-12-12 10:10] LABS: LUTEINIZING HORMONE 7.18 mIU/mL
== END 2020-12-12 08:40 | disposition home or self-care (01) ==
LOC: LAB 08:39
PROVIDERS: ATTEND Neurological Surgery
DX: Q28.3 Other malformations of cerebral vessels (principal); E23.6 Other disorders of pituitary gland; G93.9 Disorder of brain, unspecified
CPT/HCPCS: 36415; 81599; 82024; 82040; 82533; 83001; 83002; 83003; 84146; 84270; 84305; 84403; 84436; 84443; 84481

== ENCOUNTER 2021-03-22 13:42 | Outpatient (CLI) | payer MEDICARE, OTHER ==
[2021-03-22 14:19] LABS: BASOPHILS % (AUTO) 0.9 %; EOSINOPHILS # (AUTO) 0.3 10^3/uL (0.0-0.7); EOSINOPHILS % (AUTO) 7.4 %; HCT - HEMATOCRIT 39.1 % (42.0-52.0); HGB - HEMOGLOBIN 13.6 g/dL (14.0-18.0); LYMPHOCYTES # (AUTO) 1.7 10^3/uL (1.5-3.5); LYMPHOCYTES % (AUTO) 37.4 %; MEAN CORPUSCULAR HEMOGLOBIN 31.1 pg (27.0-31.0); MEAN CORPUSCULAR HGB CONC 34.8 g/dL (32.0-36.0); MEAN CORPUSCULAR VOLUME 89.3 fL (80.0-94.0); MEAN PLATELET VOLUME 9.4 fL (7.4-11.4); MONOCYTES # (AUTO) 0.5 10^3/uL (0.0-1.0); MONOCYTES % (AUTO) 11.6 %; NEUTROPHILS # (AUTO) 1.9 10^3/uL (1.5-6.6); NEUTROPHILS % (AUTO) 42.5 %; PLT - PLATELET COUNT 258 10^3/uL (130-450); RED BLOOD COUNT 4.38 10^6/uL (4.70-6.10); RED CELL DISTRIBUTION WIDTH 11.9 % (12.0-15.0); WHITE BLOOD COUNT 4.6 x10^3/uL (4.8-10.8)
[2021-03-22 14:37] LABS: ALBUMIN 3.9 g/dL (3.2-5.5); ALBUMIN/GLOBULIN RATIO 1.4 (1.0-2.2); BILIRUBIN,TOTAL 0.4 mg/dL (0.2-1.0); CREATININE 0.9 mg/dL (0.6-1.2); POTASSIUM 3.6 mmol/L (3.5-5.0); TOTAL PROTEIN 6.6 g/dL (6.7-8.2)
[2021-03-24 11:47] LABS: NIL 0.03 IU/mL; TB2-NIL 0.01 IU/mL
[2021-03-24 11:51] LABS: ALBUMIN 3.8 g/dL (3.8-4.8); ALPHA 1 GLOBULIN 0.3 g/dL (0.2-0.3); ALPHA 2 GLOBULIN 0.6 g/dL (0.5-0.9); BETA 1 GLOBULIN 0.4 g/dL (0.4-0.6); BETA 2 GLOBULIN 0.3 g/dL (0.2-0.5)
[2021-03-24 13:16] LABS: IMMUNOGLOBULIN A 179 mg/dL (70-320); IMMUNOGLOBULIN G 1012 mg/dL (600-1540); IMMUNOGLOBULIN M 129 mg/dL (50-300)
== END 2021-03-22 13:43 | disposition home or self-care (01) ==
LOC: LAB 13:42
PROVIDERS: ATTEND Psychiatry & Neurology Neurology
DX: G37.9 Demyelinating disease of central nervous system, unspecified (principal); R26.89 Other abnormalities of gait and mobility; Z76.89 Persons encountering health services in other specified circumstances; D72.820 Lymphocytosis (symptomatic); R26.81 Unsteadiness on feet
CPT/HCPCS: 36415; 80053; 81599; 82570; 82784; 84155; 84156; 84165; 84166; 85025; 86480; 86711; 86765; 86787

== ENCOUNTER 2021-03-23 08:00 | Outpatient (CLI) | payer MEDICARE, OTHER | END 2021-03-23 23:59 | LOC: LAB.R 08:00 | PROVIDERS: ATTEND Psychiatry & Neurology Neurology | DX: G37.9 Demyelinating disease of central nervous system, unspecified (principal); D72.820 Lymphocytosis (symptomatic); R26.89 Other abnormalities of gait and mobility; Z76.89 Persons encountering health services in other specified circumstances; R26.81 Unsteadiness on feet | CPT/HCPCS: 81599; 82570; 84156; 84166 ==

== ENCOUNTER 2021-03-31 08:41 | Outpatient (CLI) | payer MEDICARE, OTHER | END 2021-03-31 08:42 | disposition home or self-care (01) | LOC: LAB 08:41 | PROVIDERS: ATTEND Psychiatry & Neurology Neurology | DX: G37.9 Demyelinating disease of central nervous system, unspecified (principal); D72.820 Lymphocytosis (symptomatic); R26.89 Other abnormalities of gait and mobility; Z76.89 Persons encountering health services in other specified circumstances; R26.81 Unsteadiness on feet ==

== ENCOUNTER 2021-03-31 09:36 | Outpatient (CLI) | payer MEDICARE, OTHER ==
[2021-03-31 14:54] LABS: BASOPHILS # (AUTO) 0.1 10^3/uL (0.0-0.1); BASOPHILS % (AUTO) 1.1 %; EOSINOPHILS # (AUTO) 0.3 10^3/uL (0.0-0.7); EOSINOPHILS % (AUTO) 4.5 %; HCT - HEMATOCRIT 41.6 % (42.0-52.0); HGB - HEMOGLOBIN 13.8 g/dL (14.0-18.0); LYMPHOCYTES % (AUTO) 35.9 %; MEAN CORPUSCULAR HEMOGLOBIN 30.3 pg (27.0-31.0); MEAN CORPUSCULAR HGB CONC 33.2 g/dL (32.0-36.0); MEAN CORPUSCULAR VOLUME 91.2 fL (80.0-94.0); MEAN PLATELET VOLUME 10.7 fL (7.4-11.4); MONOCYTES # (AUTO) 0.6 10^3/uL (0.0-1.0); MONOCYTES % (AUTO) 11.1 %; NEUTROPHILS # (AUTO) 2.6 10^3/uL (1.5-6.6); PLT - PLATELET COUNT 232 10^3/uL (130-450); RED BLOOD COUNT 4.56 10^6/uL (4.70-6.10); RED CELL DISTRIBUTION WIDTH 12.4 % (12.0-15.0); WHITE BLOOD COUNT 5.6 x10^3/uL (4.8-10.8)
[2021-03-31 15:20] LABS: ALBUMIN 3.8 g/dL (3.2-5.5); ALBUMIN/GLOBULIN RATIO 1.3 (1.0-2.2); BILIRUBIN,TOTAL 0.5 mg/dL (0.2-1.0); CALCIUM 8.9 mg/dL (8.5-10.3); CREATININE 0.8 mg/dL (0.6-1.2); POTASSIUM 3.9 mmol/L (3.5-5.0); TOTAL PROTEIN 6.7 g/dL (6.7-8.2)
[2021-04-03 12:42] LABS: NIL 0.04 IU/mL; TB1-NIL 0.01 IU/mL; TB2-NIL 0.01 IU/mL
[2021-04-04 09:06] LABS: IMMUNOGLOBULIN A 180 mg/dL (70-320); IMMUNOGLOBULIN G 1023 mg/dL (600-1540); IMMUNOGLOBULIN M 133 mg/dL (50-300)
[2021-04-04 15:21] LABS: ALBUMIN 3.9 g/dL (3.8-4.8); ALPHA 1 GLOBULIN 0.3 g/dL (0.2-0.3); ALPHA 2 GLOBULIN 0.6 g/dL (0.5-0.9); BETA 1 GLOBULIN 0.4 g/dL (0.4-0.6); BETA 2 GLOBULIN 0.3 g/dL (0.2-0.5); GAMMA GLOBULIN 0.9 g/dL (0.8-1.7)
== END 2021-03-31 09:37 | disposition home or self-care (01) ==
LOC: LAB.N 09:36
PROVIDERS: ATTEND Psychiatry & Neurology Neurology
DX: G37.9 Demyelinating disease of central nervous system, unspecified (principal); D72.820 Lymphocytosis (symptomatic); R26.89 Other abnormalities of gait and mobility; Z76.89 Persons encountering health services in other specified circumstances; R26.81 Unsteadiness on feet
CPT/HCPCS: 36415; 80053; 81599; 82570; 82784; 82787; 84155; 84156; 84165; 84166; 85025; 86480; 86711; 86765; 86787

== ENCOUNTER 2023-03-30 20:21 | Emergency (ER) | payer MEDICARE, OTHER ==
--- NOTE | 2023-03-30 20:41 | ED Physician Documentation ---
PD HPI HEAD INJURY - Stated complaint Stated Complaint: GLF/HEAD INJ - Chief complaint Chief Complaint: Trauma Hd/Nk - History obtained from History obtained from: Patient - Additional information Additional information: Patient presents due to fall, head injury with scalp laceration. 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 Patient says he was on his patio when he lost his balance, causing him to fall backwards and he struck his head on a ledge. Patient attributes the loss of balance to his neurologic degenerative disorder (patient says he was told similar to MS but this is not his diagnosis); he says it is not unusual for him to lose his balance like he did tonight. He denies loss of consciousness, denies headache although has mild discomfort focal to the injury site (parieto-occipital scalp). Denies neck pain. Review of Systems Eyes: denies: Loss of vision, Decreased vision Skin: reports: Laceration (s) Musculoskeletal: reports: Reviewed and negative Neurologic: reports: Head injury. denies: Generalized weakness, Focal weakness, Numbness, Near syncope, Syncope, Confused, Altered mental status, Headache, LOC PD PAST MEDICAL HISTORY - Past Medical History Past Medical History: Yes Cardiovascular: None Respiratory: CPAP use Neuro: None, Multiple sclerosis Endocrine/Autoimmune: None GI: None : Benign prostate hypertrophy, Frequency HEENT: Chronic hearing loss Musculoskeletal: Osteoarthritis, Fibromyalgia, Chronic back pain Derm: None - Past Surgical History Past Surgical History: Yes Ortho: ACL reconstruction, Spine surgery, Other - Present Medications Home Medications: Ambulatory Orders Medication Instructions Recorded Confirmed Ibuprofen 400 mg QPM 06/16/16 12/07/17 Zolpidem [Ambien] 5 mg PO QPM 06/16/16 12/07/17 Atorvastatin Calcium 20 mg PO QPM 12/07/17 12/07/17 Ibuprofen [Advil] 400 mg PO TID PRN 12/07/17 12/07/17 Baclofen 10 mg PO 12/14/17 Lorazepam [Ativan] 1 mg PO TID PRN #14 tablet 12/14/17 Mirtazapine 15 mg PO 12/14/17 Sertraline HCl 25 mg PO 12/14/17 Zolpidem [Ambien] 10 mg PO HS 12/14/17 12/14/17 hydrOXYzine pamoate [Hydroxyzine 25 mg PO 12/14/17 Pamoate] - Allergies Allergies/Adverse Reactions: Allergies Allergy/AdvReac Type Severity Reaction Status Date / Time narcotics Allergy Respiratory Uncoded 03/30/23 20:24 - Social History Does the pt smoke?: No Smoking Status: Never smoker Does the pt drink ETOH?: Yes Does the pt have substance abuse?: No - Immunizations Immunizations are current?: Yes - POLST Patient has POLST: No PD ED PE NORMAL - Vitals Vital signs reviewed: Yes - General General: Alert and oriented X 3, No acute distress, Well developed/nourished - HEENT HEENT: PERRL, EOMI - Neck Neck: No bony TTP - Back Back: No spinal TTP PD ED PE EXPANDED - HEENT HEENT Visual: 1 - laceration (2.5 cm length laceration with mild surrounding bony tenderness but no step off) Results - Vitals Vitals: Oxygen O2 Source Room air Procedures - Laceration (location) Scalp Length in cm: 2.5 Wound type: Linear, Into subcut fat, Clean Neurovascular status: Vascular intact Anesthesia: Lidocaine 1% Wound preparation: Chlorhexadine, Irrigated copiously NS, Wound explored Skin layer closure: [place] (six) Other: Patient tolerated well, No complications, Neurovascular intact, Tetanus UTD PD Medical Decision Making - ED course Complexity details: considered differential, d/w patient ED course: Presents after fall due to a chronic neurologic disorder (per patient, loss of balance such as experiencing I does not unusual for him). Scalp laceration is repaired as above (procedure note). No indications for emergent imaging at this time. Return precautions are reviewed Departure - Departure Disposition: 01 Home, Self Care Clinical Impression: Scalp laceration, Fall Condition: Good Instructions: ED Laceration Scalp Stitch Or Stap Follow-Up: OSCAR PAUL MD [Primary Care Provider] - Comments: Contact your primary care provider in the morning when the office opens to arrange for a follow-up appointment for removal of the alfonso. You should schedule the appointment for 7 to 10 days from today. Forms: PCP List Discharge Date/Time: 03/30/23 22:43
[2023-03-30] MEDS ORDERED: BUFFERED LIDOCAINE 10 ML SYRINGE IU ONE (20:57)
[2023-03-30] MEDS ORDERED: lidocaine 1% 20 ML MDV SUBQ STA (21:25)
[2023-03-30] MEDS ORDERED: BACITRACIN ZINC OINT 1 PACKET TOP STA (22:29)
[2023-03-30 22:47] VITALS: BP 163/90; O2SAT 97
== END 2023-03-30 22:43 | disposition home or self-care (01) ==
LOC: ED 20:21
DX: S01.01XA Laceration without foreign body of scalp, initial encounter (principal); W18.39XA Other fall on same level, initial encounter; Y92.008 Other place in unspecified non-institutional (private) residence as the place of occurrence of the external cause
CPT/HCPCS: 12001; 99282; 99283

== ENCOUNTER 2023-03-30 22:54 | Emergency (ER) | payer MEDICARE, OTHER ==
--- NOTE | 2023-03-30 23:00 | ED Physician Documentation ---
PD HPI Fall - Stated complaint Stated Complaint: GLF - History obtained from History obtained from: Patient - Additional information Additional information: Patient was discharged less than an hour ago from this emergency department after head injury and repair of scalp laceration. As his was helping him get into the car to drive him home, the patient again lost his balance, falling backwards and again hitting the occipital scalp on the ground. He denies loss of consciousness, denies neck pain. As with his earlier visit, patient says loss of balance episodes such as tonight's are not unusual for him, and he attributes these to a chronic neurological degenerative disease that he says is similar to MS but this is not his specific diagnosis. He had pain localized to the occipital scalp where he had fallen earlier, but now has more generalized headache. Review of Systems Eyes: denies: Loss of vision, Decreased vision Cardiac: reports: Reviewed and negative Respiratory: reports: Reviewed and negative Skin: reports: Laceration (s) Musculoskeletal: reports: Reviewed and negative Neurologic: reports: Headache, Head injury, LOC. denies: Generalized weakness, Focal weakness, Numbness, Near syncope, Syncope, Confused, Altered mental status PD PAST MEDICAL HISTORY - Past Medical History Cardiovascular: None Respiratory: CPAP use Neuro: None, Multiple sclerosis Endocrine/Autoimmune: None GI: None : Benign prostate hypertrophy, Frequency HEENT: Chronic hearing loss Musculoskeletal: Osteoarthritis, Fibromyalgia, Chronic back pain Derm: None - Past Surgical History Past Surgical History: Yes Ortho: ACL reconstruction, Spine surgery, Other - Present Medications Home Medications: Ambulatory Orders Medication Instructions Recorded Confirmed Ibuprofen 400 mg QPM 06/16/16 12/07/17 Zolpidem [Ambien] 5 mg PO QPM 06/16/16 12/07/17 Atorvastatin Calcium 20 mg PO QPM 12/07/17 12/07/17 Ibuprofen [Advil] 400 mg PO TID PRN 12/07/17 12/07/17 Baclofen 10 mg PO 12/14/17 Lorazepam [Ativan] 1 mg PO TID PRN #14 tablet 12/14/17 Mirtazapine 15 mg PO 12/14/17 Sertraline HCl 25 mg PO 12/14/17 Zolpidem [Ambien] 10 mg PO HS 12/14/17 12/14/17 hydrOXYzine pamoate [Hydroxyzine 25 mg PO 09/02/18 Pamoate] - Allergies Allergies/Adverse Reactions: Allergies Allergy/AdvReac Type Severity Reaction Status Date / Time narcotics Allergy Respiratory Uncoded 03/30/23 20:24 - Social History Does the pt smoke?: No Smoking Status: Never smoker Does the pt drink ETOH?: Yes Does the pt have substance abuse?: No - Immunizations Immunizations are current?: Yes - POLST Patient has POLST: No PD ED PE NORMAL - Vitals Vital signs reviewed: Yes - General General: Alert and oriented X 3, No acute distress, Well developed/nourished - HEENT HEENT: PERRL, EOMI - Neck Neck: No bony TTP PD ED PE EXPANDED - HEENT HEENT Visual: 1 - laceration (2.5 cm with [address]; the lateral-most three alfonso are bent (flattened)) Results - Vitals Vitals: Oxygen O2 Source Room air - Rads (name of study) CTH Relevant Findings:: Prelim report reviewed, See rad report CT cervical spine Relevant Findings:: Prelim report reviewed, See rad report PD Medical Decision Making - ED course Complexity details: reviewed results, re-evaluated patient, considered differential, d/w patient ED course: No concerning findings on CTH, CT cervical spine. The three lateral-most alfonso in the scalp laceration are deformed (appear flattened with ends stretched and thus the wound edges are no longer well- approximated in the lateral half of the wound). These three alfonso are removed and replaced with new alfonso, resulting in good reapproximation of wound edges. Departure - Departure Disposition: 01 Home, Self Care Clinical Impression: Scalp laceration, Fall Condition: Good Instructions: ED Laceration Scalp Stitch Or Stap Follow-Up: OSCAR PAUL MD [Primary Care Provider] - Comments: Follow up with your primary care provider in 7-10 days for removal of the alfonso Forms: PCP List Discharge Date/Time: 03/31/23 04:02
--- NOTE | 2023-03-31 02:00 | CT Report ---
PROCEDURE: HEAD WO INDICATIONS: fall, head injury TECHNIQUE: Noncontrast 4.5 mm thick angled axial sections acquired from the foramen magnum to the vertex. For r adiation dose reduction, the following was used: automated exposure control, adjustment of mA and/or kV according to patient size. COMPARISON: Correlation is made with prior brain MRI, 12/08/2017. Correlation is also made with prior head CT angiogram, 12/07/2017. Correlation is made with the accompanying cervical spine CT. FINDINGS: Image quality: Excellent. CSF spaces: Basal cisterns are patent. No extra-axial fluid collections. Ventricles are normal in size and shape. Brain: No midline shift. No intracranial masses or hemorrhage. Alvarado-white matter interface is norm al. Skull and face: There is a right posterior scalp laceration seen, which has been repaired. Soft tiss ue scalp hematoma can be seen. No underlying calvarial fracture can be seen. Calvarium and visualized facial bones are intact, without suspicious lesions. Sinuses: Visualized sinuses and mastoids are clear. IMPRESSION: Right posterior scalp hematoma with repaired scalp laceration. No associated calvarial fracture is se en. No intracranial hemorrhage is seen. No significant intracranial abnormality is seen. Reviewed by: Francisco Louis MD on 03/31/2023 12:59 AM [facility] Approved by: Francisco Louis MD on 03/31/2023 12:59 AM [facility] Station ID: [id number]
--- NOTE | 2023-03-31 02:01 | CT Report ---
PROCEDURE: CERVICAL SPINE WO INDICATIONS: fall, head injury TECHNIQUE: Noncontrast 3 mm thick sections acquired from the skull base to the T4 level. Sagittal and coronal r eformats were then constructed. For radiation dose reduction, the following was used: automated exp osure control, adjustment of mA and/or kV according to patient size. COMPARISON: Correlation is made with the accompanying head CT. Correlation is also made with the isa or neck CT angiogram, 12/07/2017. FINDINGS: Image quality: This study is limited by quantum mottle artifact. Bones: No fractures or dislocations. Visualized superior ribs are intact. Age-appropriate degenera tive changes are seen. Soft tissues: Prevertebral soft tissues are normal in thickness. No paravertebral hematomas. No ap ical pneumothoraces. IMPRESSION: Negative for cervical spine fracture. Reviewed by: Francisco Louis MD on 03/31/2023 1:00 AM [facility] Approved by: Francisco Louis MD on 03/31/2023 1:00 AM [facility] Station ID: [id number]
[2023-03-31] MEDS ORDERED: BACITRACIN ZINC OINT 1 PACKET TOP STA (03:33)
[2023-03-31 03:47] VITALS: BP 155/90; O2SAT 99
== END 2023-03-31 04:02 | disposition home or self-care (01) ==
LOC: ED 22:54
DX: S01.01XA Laceration without foreign body of scalp, initial encounter (principal); W18.39XA Other fall on same level, initial encounter; Y92.810 Car as the place of occurrence of the external cause; Y92.008 Other place in unspecified non-institutional (private) residence as the place of occurrence of the external cause
CPT/HCPCS: 12001; 70450; 72125; 99282; 99283; 99284; A9270